=== PATIENT | female | born 1980 | race Caucasian/White ===

== ENCOUNTER 2021-01-29 14:47 | Observation (INO) | payer OTHER, BC ==
[2021-01-29] MEDS ORDERED: Sodium Chloride 0.9% 10 ML Syringe FLUSH PRN (14:58)
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
[2021-01-29] MEDS ORDERED: Lactated Ringers 1,000 ML IV ONE (15:08)
[2021-01-29 15:30] LABS: PTT,PARTIAL THROMBOPLSTIN TIME 25.4 SEC (24.5-32.8)
[2021-01-29 15:55] LABS: CHLORIDE,CL 106 mmol/L (98-107); SODIUM,NA 138 mmol/L (136-145)
[2021-01-29] MEDS ORDERED: Acetaminophen 325 MG Tab PO ONE (16:53)
[2021-01-29] MEDS ORDERED: Ondansetron 4 MG/2 ML SDV IVPUSH PRN (19:15)
[2021-01-29] MEDS ORDERED: Lactated Ringers 1,000 ML IV SCH (19:30)
[2021-01-29] MEDS ORDERED: Temazepam 15 MG Cap PO PRN (20:00)
[2021-01-29 20:26] LABS: BARBITURATE SCREEN,URINE NEGATIVE (NEGATIVE); BENZODIAZEPINES SCREEN,URINE NEGATIVE (NEGATIVE); EDDP,URINE SCREEN NEGATIVE (NEGATIVE); TCA SCREEN,URINE NEGATIVE (NEGATIVE); THC SCREEN,URINE 50 NG/ML NEGATIVE (NEGATIVE)
[2021-01-29] MEDS ORDERED: Cyclobenzaprine 10 MG Tab PO PRN (20:56)
[2021-01-29] MEDS: Acetaminophen 325 MG Tab PO PRN (21:15)
[2021-01-29] MEDS: Sodium Chloride 0.9% 10 ML Syringe FLUSH SCH (22:40)
[2021-01-30] MEDS: Acetaminophen 325 MG Tab PO PRN ×2 (03:58→08:17)
[2021-01-30] MEDS: Sodium Chloride 0.9% 10 ML Syringe FLUSH SCH (07:46)
[2021-01-30] MEDS ORDERED: Loratadine 10 MG Tab PO SCH (08:00)
[2021-01-30 08:16] LABS: CHLORIDE,CL 108 mmol/L (98-107); SODIUM,NA 142 mmol/L (136-145)
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
[2021-01-30] MEDS ORDERED: Famotidine 20 MG/2 ML SDV IVPUSH SCH (19:30)
[2021-01-30] MEDS ORDERED: Pantoprazole 40 MG Vial IVPUSH SCH (19:30)
== END 2021-01-30 10:45 | disposition home or self-care (01) ==
LOC: LL.ED 14:47 → LL.MS 17:57
PROVIDERS: ADMIT Family Medicine; ATTEND Family Medicine
DX: T14.90XA Injury, unspecified, initial encounter (principal); T07.XXXA Unspecified multiple injuries, initial encounter; R41.0 Disorientation, unspecified; R10.32 Left lower quadrant pain; R79.89 Other specified abnormal findings of blood chemistry; E66.9 Obesity, unspecified; Z79.899 Other long term (current) drug therapy; V59.59XA Passenger in pick-up truck or van injured in collision with other motor vehicles in traffic accident, initial encounter
CPT/HCPCS: 36415; 70450; 71045; 72125; 72170; 80053; 80305-QW; 80307; 81001; 82150; 82550; 82553; 83605; 83690; 83735; 84484; 84550; 84703; 85025; 85610; 85730; 87086; 99217; 99220; 99285-25; A9270-GY; G0378; J7120

== ENCOUNTER 2021-11-29 09:17 | Emergency (ER) | payer BC ==
[2021-11-29] MEDS ORDERED: Ibuprofen 600 MG Tab PO ONE (09:39)
[2021-11-29] MEDS ORDERED: Ondansetron 4 MG/2 ML SDV IVPUSH ONE (10:16)
[2021-11-29] MEDS: HYDROmorphone 0.5 MG/0.5 ML Syringe IVPUSH PRN ×2 (10:22→12:26)
[2021-11-29] MEDS: Sodium Chloride 0.9% 10 ML Syringe FLUSH PRN ×3 (10:23→12:26)
[2021-11-29] MEDS ORDERED: Sodium Chloride 0.9% 1,000 ML IV SCH (10:30)
[2021-11-29 11:00] LABS: CHLORIDE,CL 106 mmol/L (98-107); SODIUM,NA 140 mmol/L (136-145)
== END 2021-11-29 13:45 ==
LOC: LL.ED 09:17
DX: S72.002A Fracture of unspecified part of neck of left femur, initial encounter for closed fracture (principal); K21.9 Gastro-esophageal reflux disease without esophagitis; Z79.899 Other long term (current) drug therapy; W00.0XXA Fall on same level due to ice and snow, initial encounter
CPT/HCPCS: 36415; 51702; 80053; 81025; 85025; 85610; 96374; 96375; 96376; 99284; 99284-25; J1170; J2405; J7030